=== PATIENT | female | born 1990 | race Caucasian/White ===

== ENCOUNTER 2016-10-19 08:39 | Inpatient (IN) | payer OTHER ==
[~2016-10-19] VITALS: Ht 170.2 cm; Wt 97.5 kg
[~2016-10-19 08:39] MED LIST: ONDA8TAB10 PO; PYRI25LO2 PO
[2016-10-19] MEDS ORDERED: Lactated Ringer's 1,000 ML IV PRN (10:26)
[2016-10-19] MEDS ORDERED: Sodium Chloride LOK Flush 10 mL Syringe IVFLUSH PRN (10:30)
[2016-10-19] MEDS ORDERED: Oxytocin 10 Unit/mL Inj IM PRN (10:30)
[2016-10-19] MEDS ORDERED: Methylergonovine 0.2 mg/mL Inj IM PRN (10:30)
[2016-10-19] MEDS ORDERED: Hemorrhage Kit, Post Partum XX ONE (10:30)
[2016-10-19] MEDS ORDERED: Oxytocin 30 Units/500 mL LR 30 UNITS in IV Premix 1 EACH IV PRN ×2 (10:30→14:15)
[2016-10-19] MEDS ORDERED: Carboprost 250 mCg/mL Inj IM PRN (10:30)
[2016-10-19 11:47] LABS: Mean Corpuscular Hemoglobin 27.4 pg (27.0-35.0); Mean Corpuscular Volume 83.5 fL (81-100)
[2016-10-19] MEDS ORDERED: Penicillin G K 5,000,000 UNITS/100 ML D5W IV ONE ×2 (11:50)
[2016-10-19] MEDS ORDERED: Lactated Ringer's 1,000 ML IV SCH ×2 (14:15→18:59)
[2016-10-19] MEDS ORDERED: Penicillin G K Inj 3,000,000 UNITS in IV Premix 1 EACH IV SCH (16:30)
[2016-10-19] MEDS ORDERED: fentaNYL-PF 50 mCg/mL 2 mL Inj ONE (18:04)
[2016-10-19] MEDS ORDERED: Lactated Ringer's 500 ML IV ONE (18:59)
[2016-10-19] MEDS ORDERED: EPHEDrine Sulfate 50 mg/mL Inj IVPUSH PRN (19:00)
[2016-10-19] MEDS ORDERED: Ondansetron 2 mg/mL 2 mL Inj IVPUSH PRN (19:00)
[2016-10-19] MEDS ORDERED: Atropine 1 mg/10 mL (Code) Syringe IVPUSH PRN (19:00)
[2016-10-19] MEDS ORDERED: fentaNYL 2 mCg/mL-Bupiv 0.125% 100 ML EPIDURAL SCH (19:00)
--- NOTE | 2016-10-19 19:34 | PCM.HPANE ---
Patient Data Date of Service: Oct 19, 2016 Surgeon Admitting Provider:Roberth Berg MD Attending Provider:Roberth Berg MD Primary Care Physician:Roberth Berg MD Other Provider:Michael Quintana Anesthesia Reason for Visit Induction INDUCTION Ht/WT & BMI Height (Feet): 5 Height (Inches): 7 Weight (Kilograms): 97 Body Mass Index Allergies Coded Allergies: No Known Allergies (Unverified , 03/13/16) Diabetes History Hx Diabetes?: No MRSA MRSA: No Medications Hypertension Medication: No Home Meds Incl Beta Judith: No Active Scripts Ondansetron ODT 8 Mg Tab.rapdis8 Mg PO Q4H PRN For Nausea #20 TABLET Prov:Vaibhav Rivero MD 03/13/16 Pyridoxine HCl (B-)25 Mg Dygaxyb54 Mg PO TID PRN For Nausea #60 LOZENGE Prov:Vaibhav Rivero MD 03/13/16 History History of ENT Problems?: No HEENT History: Denies:: Abnormal Airway Cataracts Difficult Intubation Dysphagia Glaucoma Hearing Problem Sinus Problem TMJ Hx of Heart Problems?: No Cardiovascular History: Denies:: AICD Abdominal Aortic Aneurism Atrial Fibrillation Cardiac Surgery Chest Pain Congestive Heart Failure Coronary Artery Disease Edema Heart Murmur Hypertension Irregular Heartbeat Pacemaker Peripheral Vascular Rheumatic Fever Thrombophlebitis Valvular Heart Disease Hx of Respiratory Problem?: No Respiratory History: Denies:: Asthma COPD Chest Surgery Cough Dyspnea Emphysema Hemoptysis Oxygen Administration Pneumonia Pulmonary Embolism Tuberculosis Use of C-PAP Machine Use of Inhalers / NEBS Hx Neurologic Problems?: No Neurological History: Denies:: Alzheimer's Disease CVA Dementia Dizziness Headaches Multiple Sclerosis Parkinson's Disease Peripheral Neuropathy Seizures TIA Hx of GI Problems?: No Gastrointestinal History: Denies:: Cirrhosis Diverticulitis Gall Bladder Disease Gastroesphageal Reflux Gastrointestinal Bleeding Heartburn Hepatitis Hiatal Hernia Liver Disease Rectal Bleeding Hx of Problems?: No Genitourinary History: Denies:: HX of Hemodialysis Kidney Stones Urinary Tract Infection HX of Peritoneal Dialysis: No Female Hx: Positive for:: Currently Hx Musculoskeletal Problems?: No Musculoskeletal History: Denies:: Back Injury Degenerative Joint Fibromyalgia Joint Replacement Musculoskeletal Trauma Myasthenia Gravis Osteoarthritis Rheumatoid Arthritis Systemic Lupus Hx of Psycho/Social Problems?: No Psycho Social History: Denies:: Anxiety Bipolar Disorder Hx Depression Suicide Attempt Hx Surgeries?: No Hx Any Other Health Problems?: No Hx Diabetes: No Hx Substance Use: No Smoking Status: Never Smoker Have You Smoked inLast 12 mo: No Stop/Bang Treated for Sleep Apnea?: No Do You Have a CPAP Machine?: No S-Snoring: Do You Snore Loudly: No T-Tired: feel tired, fatigued: No O-Obsered: Observed not breath: No P-Blood Pressure: treated: No B- Body Mass Index > 35 kg/m2: No A- Age over 50: No N- Neck Large Circumference: No G- Gender Male: No MALDONADO Risk Assessment: Low Risk, <3 Yes Risk Assessment Category Category 1A: Patient has history of documented sleep apnea, and HAS NOT received any narcotic, sedative or anesthesia administration during this stay. Category 1B: Patient has history of documented sleep apnea, and HAS received any narcotic , sedative or anesthesia administration during this stay Category 2: Patient has SUSPECTED Obstructive Sleep Apnea, and HAS received any narcotic , sedative or anesthesia administration during this stay. Category 3: Patient has SUSPECTED Obstructive Sleep Apnea and HAS NOT received narcotic, sedative or anesthesia administration during this stay. Category 4: Outpatient in Procedural Areas with known sleep apnea or who screen positive for High Risk via the STOP/BANG questionnaire. Exam Exam General Appearance: Alert, Oriented X3, Cooperative, No Acute Distress HEENT/AIRWAY: MP 2, Neck Movement (from), Mouth Opening (3), Other (TMD>3) Lungs: Clear to Auscultation Heart: Exam Unremarkable, Regular Rate/Rhythm, Normal S1, Normal S2, No Murmurs /Rubs/Gallops Meds/Labs/Diagnostics Admission Meds Current Medications Penicillin G Potassium [id number] units/Dextrose/ Water 100 ml @ 100 mls/hr OT ONCE IV Last administered on 10/19/16 12:01; Start 10/19/16 at 11:50; Stop at 12:49; Status DC Penicillin G Potassium/ Dextrose/Premix (Pfizerpen Inj/ IV Premix) 50 ml @ 50 mls/hr Q4 IV Last administered on 10/19/16 16:06; Start 10/19/16 at 16:30 Fentanyl Citrate 100 mcg 100 mcg STK-MED ONCE .ROUTE Last administered on 18:17; Start 10/19/16 at 18:04; Stop 10/19/16 at 18:06; Status DC Lactated Ringer's (Lr) 1,000 ml @ 125 mls/hr Q8H IV Last administered on t 19:19; Start 10/19/16 at 18:59; Stop 10/20/16 at 19:00 Labs Test 10/19/16 11:20 White Blood Count 9.4th/mm3 (3.8-10.1) Red Blood Count 4.42mil/mm3 (3.90-5.20) Hemoglobin 12.1g/dL (12.0-15.6) Hematocrit 36.9% (35.0-46.0) Mean Corpuscular Volume 83.5fL (81-100) Mean Corpuscular Hemoglobin 27.4pg (27.0-35.0) Mean Corpuscular Hemoglobin Concent 32.8% (32.0-37.0) Red Cell Distribution Width 13.6% (12.3-15.4) Platelet Count 216bil/L (150-400) Plan Impression Patient chart reviewed, patient interviewed and anesthestic plan with risks, benefits, and alternatives discussed, and informed consent obtained. ASA Physical Status: ASA2 Mod Systemic Disease Anesthetic Plan: Epidural Bene/Risks/Altern/Consents: Yes HP Complete Prior to Induction: Yes Harjinder Beck MD Oct 19, 2016 19:34
--- NOTE | 2016-10-20 05:12 | PCM.ANEP1 ---
Post Anesthesia Phase 1 PACU Phase 1 Assessment Date of Service: Oct 19, 2016 Anesthetic Administered: Epidural Level of Alertness: Awake, talking LEON's with Equal Strength: No Pain: No Pain Scale Score: 0 Nausea or Vomiting: No Oxygen Delivery: Room Air Lungs: Clear to Auscultation Harjinder Beck MD Oct 20, 2016 05:12
--- NOTE | 2016-10-20 05:13 | PCM.ANEP2 ---
Post Anesthesia Evaluation ASA/CMS Post Anesthesia VS in Patient's Normal Range?: Yes Resp Stable; Airway Patent?: Yes CV Function & Hydration Stable: Yes Mental Status Recovered?: Yes Pain control Satisfactory?: Yes N/V Control Satisfactory?: Yes Harjinder Beck MD Oct 20, 2016 05:12
--- NOTE | 2016-10-20 06:33 | PROG NOTE ---
[address] [address] PROGRESS NOTE PATIENT: ERICA ALDANA : 1990 MR#: [id number] ADMIT: 10/19/2016 JOB ID: [id number] [facility] NOTE: DATE: 10/19/2016 TIME: 2130 hour. HISTORY OF PRESENT ILLNESS: The patient reached complete cervical dilatation and learned to push well. She steadily brought down the baby, ultimately to point. Note that heart tracing demonstrated appropriate variability, there were some heart rate drops consistent with head compression (or variables) with contractions, and there was a stretch where there is a late component as well although improving with oxygen therapy, intravenous fluids and so forth. Once , head then delivered, followed by the shoulders, body and extremities. There was noted nuchal cord. Baby was active and crying and vigorous upon delivery and was handed to mother for bonding and further nurse management. After a 90 second delay, umbilical cord was clamped and cut, and cord blood was then obtained for routine studies. Placenta with membranes were then spontaneously expelled, intact. Intrauterine cavity assessment demonstrated no obvious retained placenta or membranes although uterus did moderately fill with clots x1. Overall blood loss was noted to be in the 300 cc range. Betadine solution was used to cleanse the vulvovaginal region and there were noted three lacerations, none deep. There was small to moderately sized second-degree perineal laceration, also right anterior to mid inner labial to hymenal ring laceration, and then left sided hymenal ring laceration at the 3 o'clock position. All of these lacerations were repaired with 3-0 chromic suture in a running manner, with two layers on the perineum. Complete hemostasis was achieved in these regions, there was no hematoma formation, and anticipate that healing will be very good. All instrument, needle and sponge counts were then found to be correct and procedures were complete. It certainly is anticipated that mother and baby will do very well. Note that baby boy who weighed 9 pounds 3 ounces, and anticipating the bicycle assembler will track blood sugars. Note that the patient did receive two doses of penicillin G prophylactically in labor in light of group B strep test positivity.
--- NOTE | 2016-10-20 07:43 | PROG NOTE ---
[address] [address] PROGRESS NOTE PATIENT: ERICA ALDANA : 1990 MR#: [id number] ADMIT: 10/19/2016 JOB ID: [id number] DATE: 10/19/2016 [facility] UPDATE NOTE: The patient was admitted at 38 and 2/7 weeks along in the , having undergone labor induction, see prior notes for indications. She advanced through the latent phase of labor into the active phase, artificial rupture of membranes was accomplished and contractions became stronger than those simply stimulated by the Pitocin, and epidural was provided for pain management. Labor progressed and relatively rapidly progressed from about 5 cm to 10 cm and patient is now pushing. heart tracing has demonstrated some reasonable variability, and some heart rate drops with contractions as well as the late component during the last little bit. I have encouraged nursing staff to increase fluids and provide oxygen therapy and use positioning techniques to try to erase the late component. We will do scalp stimulation and assess heart tracing in that manner while continuing to push. We are anticipating vaginal delivery.
[2016-10-20] MEDS ORDERED: Lactated Ringer's 1,000 ML IV SCH (07:44)
--- NOTE | 2016-10-20 07:44 | HP ---
[address] [address] HISTORY AND PHYSICAL PATIENT: ERICA ALDANA : 1990 MR#: [id number] ADMIT: 10/19/2016 JOB ID: [id number] DATE: 10/19/2016 The patient is a 26-year-old, G1, P0, AB0 woman followed prenatally at [facility], see record for details. Due date is October 31, 2016, placing patient at 38 and 2/7 weeks along at time of admission. Note positive strep test, rubella immune status, Rh positive status, and size greater than dates during the third trimester. This morning, nonstress test was performed in that patient has noted decreased movement during the past couple of weeks. Nonstress test was reactive. Ultrasound was also performed this morning in that size has been greater than dates and we wished to rule out macrosomia as well as polyhydramnios. Mobile Pet Groomer and radiologist were concerned with several findings including polyhydramnios (95th to 97th percentile per amniotic fluid index readings, macrosomia with estimated weight in the 9 pound range, large abdominal circumference relative to other measurements (2-3 weeks ahead), thus raising potential concern for high risk for shoulder dystocia), and research staff member thought that there could be meconium as well due to echogenic material prominent within the amniotic fluid. I reviewed all these results and felt that labor induction would be appropriate at 38 and 2/7 weeks along, the day of ultrasound findings, in that polyhydramnios without specific cause was noted, baby has had decreasing movement subjectively, although with extra fluid to allow more movement, there was the concern regarding potential meconium, and then the size factors, as described. I also discussed the matter with perinatologist this morning and she agreed per phone call from her place of work at the [facility]. She agreed that waiting a few days to 39 weeks would likely gain little although in the face of greater potential for adverse effects in the setting of combination or package of factors including the subjective impression of decreased movement, new diagnosis of polyhydramnios of uncertain etiology, potential for meconium, etc. I discussed this medical indications thus for labor induction with the charge nurse at the Center and she was agreeable to the patient staying and undergoing labor induction. In summary, then, the patient was admitted to [facility] at 38 and 2/7 weeks along today i.e. on October 19, 2016, for labor induction. PHYSICAL EXAMINATION ON ADMISSION: Height 67 inches, last weight in the office 215 pounds, blood pressure 120/84 at last check in the office. Neck: No thyromegaly. Lungs: Clear to auscultation and percussion. Heart: Regular in rate and rhythm. Abdomen: Fundal height 44-44.5 cm on check of October 18, 2016, with positive heartbeat. Pelvic examination: Cervix on admission in the tight 3 cm range, 50% effacement, per last exam. Vertex presentation, bag of water intact. IMPRESSION: 1. A 38 and 2/7 weeks . 2. Recently noted decreased movement (x2 weeks). 3. Polyhydramnios of uncertain etiology, diagnosed per ultrasound on the day of admission. 4. Potential for meconium per ultrasound impression on ultrasound on the day of admission. 5. macrosomia at 9 pounds estimated, per ultrasound on October 19, 2016. 6. Abdominal circumference 2-3 weeks large compared to head and femur measurements. This potentially could increase risk of shoulder dystocia. 7. Increased weight, note 35 pounds of weight gain in . 8. Positive strep test, for antibiotic prophylaxis in labor. 9. Rh positive status. 10. Rubella immune status. 11. No quad per patient choice, although level 2 sonogram performed and found to be negative. 12. Up to date with Tdap and flu vaccine (both received on August 26, 2016). 13. Family history of diabetes (grandfather), hypertension and stroke (grandmother), twins (maternal side). PLAN: This patient was admitted to [facility] on October 19, 2016 on which day labor induction has been initiated in the setting of polyhydramnios of uncertain etiology, large for gestational age at 9 pounds estimated weight, large abdominal circumference (and presumably shoulders) versus head and leg measurements, potential meconium by ultrasound, and also decreased movement over the last couple of weeks. There has been felt to be greater potential for adverse effects by waiting as opposed to bringing out baby at this point, i.e. 38 2/7 weeks along. The patient and are agreeable and thus admission has been effected and labor induction process initiated.
[2016-10-20] MEDS ORDERED: LANOlin HPA 7 Gm Ointment TOPICAL PRN (07:45)
[2016-10-20] MEDS ORDERED: Methylergonovine 0.2 mg/mL Inj IM PRN (07:45)
[2016-10-20] MEDS ORDERED: Influenza (Adult) Vaccine 0.5 mL Syringe IM ONE (07:45)
[2016-10-20] MEDS ORDERED: Measles-Mumps-Rubella Vaccine 0.5 mL Inj SUBQ ONE (07:45)
[2016-10-20] MEDS ORDERED: Oxytocin 10 Unit/mL Inj IM PRN (07:45)
[2016-10-20] MEDS ORDERED: TdaP Vaccine 0.5 mL Inj IM ONE (07:45)
[2016-10-20] MEDS ORDERED: Oxytocin 30 Units/500 mL LR 30 UNITS in IV Premix 1 EACH IV PRN (07:45)
[2016-10-20] MEDS ORDERED: Benzocaine (Dermoplast) 20% 60 Gm Spray TOPICAL PRN (07:45)
[2016-10-20] MEDS ORDERED: Hemorrhage Kit, Post Partum XX ONE (07:45)
[2016-10-20] MEDS ORDERED: HYDROcodone-APAP 5-325 mg Tablet PO PRN (07:45)
[2016-10-20] MEDS ORDERED: Carboprost 250 mCg/mL Inj IM PRN (07:45)
[2016-10-20] MEDS ORDERED: Witch Hazel-Glycerin Pads TOPICAL PRN (07:45)
--- NOTE | 2016-10-20 07:45 | PROG NOTE ---
[address] [address] PROGRESS NOTE PATIENT: ERICA ALDANA : 1990 MR#: [id number] ADMIT: 10/19/2016 JOB ID: [id number] DATE: 10/19/2016 TIME: 1830 hours. [facility] NOTE: The patient was admitted at 38-2/7 weeks along for labor induction, see prior note for details. heart tracing has demonstrated good variability and reactivity throughout the afternoon, as labor was induced by gradually increasing Pitocin. Uterine contractions became closer and stronger, and at least moderately intense, and cervical dilatation progress has been shown to be at 4.5 cm and 80% effacement, -2 station. Bag of water was ruptured and clear fluid recovered and intrauterine pressure catheter was placed to facilitate ongoing Pitocin administration. Note that following artificial rupture of membranes contractions became notably stronger and the patient requested epidural, and I have spoken with the anesthesiologist. He is planning on placing another one first and then coming down to this patient's room to place epidural. We will provide fentanyl to the patient to see if she can feel better until epidural has been placed and activated. Note that the patient and and family understand that things are going along well, there has been good progress, and epidural should help a great deal in comfort, will also providing relaxation that together with Pitocin push hopefully will help the patient move through the active phase of labor more rapidly. It is also good news that there is no meconium noted, and that the heart tracing has been good overall as labor is induced. The transmitter supervisor will be notified in light of early status at 12 days before due date and time, with large size large and large abdomen relative to other biometrics. Penicillin G is being provided in light of the positive strep. PLAN: Anticipate continuing cervical change/dilatation as Pitocin continues. Anticipating vaginal . Epidural will soon be placed for pain management, with fentanyl in the meantime. Penicillin G will continue to be provided at 4-hour intervals.
--- NOTE | 2016-10-20 17:33 | PCM.DIOB ---
Obstetrical Disch Instruction Dates of Hospitalization Date of Hospital Admission Oct 19, 2016 at 10:24 Providers Admitting Physician: Roberth Berg MD Primary Care Physician: Roberth Berg MD Attending Physician: Roberth Berg MD Discharge Diagnosis Problems: (1) Status: Acute ICD Code: Z33.1 Diet Discharge Diet: No restrictions Activity Discharge Activity-General: Pelvic Rest for 6 weeks Dressing and Incisional Care Hygiene: May shower, Perineal care, Sitz bath, Dermoplast spray, Witch Nena pads, Ice Follow Up Plan Follow-up appointment: Weeks (Follow up in 6 weeks for checkup with Dr. Berg.) Call your provider for: Fever or Chills, Shortness of breath, Heavy vaginal bleeding, Red painful breasts Roberth Berg MD Oct 20, 2016 17:33
[2016-10-20] MEDS ORDERED: IBUP-1827 PO (17:34)
[2016-10-20] MEDS ORDERED: DOCU-41 PO (17:34)
[2016-10-20 21:41] VITALS: BP 128/65; PULSE 83; RESP 18
--- NOTE | 2016-10-21 07:28 | DIS ---
[address] [address] DISCHARGE SUMMARY PATIENT: ERICA ALDANA : 1990 MR#: [id number] ADMIT: 10/19/2016 JOB ID: [id number] DIS: 10/20/2016 DATE: 10/20/2016 DISCHARGE DIAGNOSES: 1. A 38-2/7 week , delivered. 2. Unexplained polyhydramnios. 3. macrosomia. PROCEDURES PERFORMED DURING HOSPITALIZATION: 1. Labor induction. 2. Vaginal delivery. 3. Tear of delivery - associated vulvovaginal lacerations. 4. Epidural anesthesia. HOSPITAL COURSE: Patient was admitted to [facility] on October 19, 2016, on which day procedures were accomplished as listed above. During the timeframe, patient did well, with stable vitals, afebrile, with reasonable bleeding and pain management, voiding and ambulating, without leg pain or shortness of breath, and handling baby well. She was interested in discharge to home on the first day, i.e., on October 20, 2016. DISCHARGE PROGRAM: Patient will call p.r.n. heavy bleeding, high fever, or other problem. Otherwise, she will follow up in six weeks for checkup. She will observe pelvic rest for six weeks. DISCHARGE MEDICATIONS: 1. Ibuprofen. 2. Colace. Prescriptions written. She will also use vitamin daily while nursing.
--- NOTE | 2016-10-22 14:12 | PATH ---
SURGICAL PATHOLOGY Attending Physician:Roberth Berg M.D CASE STATUS: Signed Out PATIENT NAME: ERICA ALDANA PID: [id number] : 1990 DATE COLLECTED:10/19/2016 00:00 SPECIMEN: Placenta CLINICAL HISTORY: A: PLACENTA FINAL DIAGNOSIS: Placenta with Umbilical Cord and Membranes: 1. Placenta 482 grams. Small microscopic marginal infarct. Negative for significant vascular lesions. Negative for significant inflammation. 2. Umbilical cord: 24.5 cm in length with three normal blood vessels. Cord is attached 2.5 cm from the placental edge. Negative for significant inflammation. 3. membranes: Ruptured at the placental edge. Negative for significant inflammation. ICD10: O40.3XX2 GROSS DESCRIPTION: The specimen is received unfixed, labeled with the patient's name and consists of an intact placenta and includes placental disc (482 g, 18.6 x 15.5 x 3.1 cm), umbilical cord (length-24.5 cm, diameter-1.2 x 1.1 cm) and membranes. The membranes are ruptured at the free edge of the placenta and are semi-translucent. The umbilical cord is attached 2.5 cm from the edge of the placenta and contains 3 vessels. The surface is smooth and shiny with no evidence of meconium. The maternal surface is dark maroon with normal cotyledon formation. The placental disc is spongy with no hematomas, infarcts, nodules, masses, or lesions. Section code: (A) edge of placenta with membranes, umbilical cord; (B-C, D) placenta, 2 full thickness sections. Note: Formalin was added 10/20/16 @ 1615. 10/21/16 ICD-9 CODES: CPT CODES: 1: 58951 Electronically Signed Out Stevie Bradshaw MD [facility] [address], [place] [address] Technical component performed at [facility], [facility] [address], [place], [address]
== END 2016-10-20 22:17 | disposition home or self-care (01) | DRG 775 ==
LOC: FBCO 08:39 → FBC 10:24
PROVIDERS: ADMIT Obstetrics & Gynecology; ATTEND Obstetrics & Gynecology
PROC: 10E0XZZ Delivery of Products of Conception, External Approach (ICD-10-PCS; principal; 2016-10-19)
PROC: 0KQM0ZZ Repair Perineum Muscle, Open Approach (ICD-10-PCS; 2016-10-19)
PROC: 0UQMXZZ Repair Vulva, External Approach (ICD-10-PCS; 2016-10-19)
PROC: 10H07YZ Insertion of Other Device into Products of Conception, Via Natural or Artificial Opening (ICD-10-PCS; 2016-10-19)
PROC: 10907ZC Drainage of Amniotic Fluid, Therapeutic from Products of Conception, Via Natural or Artificial Opening (ICD-10-PCS; 2016-10-19)
DX: O70.1 Second degree perineal laceration during delivery (principal); Z37.0 Single live birth; Z3A.38 38 weeks gestation of pregnancy; O71.82 Other specified trauma to perineum and vulva; O69.82X0 Labor and delivery complicated by other cord entanglement, without compression, not applicable or unspecified; O40.3XX0 Polyhydramnios, third trimester, not applicable or unspecified; O36.63X0 Maternal care for excessive fetal growth, third trimester, not applicable or unspecified